=== PATIENT | female | born 1955 | race African-American/Black ===

== ENCOUNTER 2022-04-06 12:35 | Inpatient (IN) ==
[2022-04-06] MEDS ORDERED: LACTATED RINGERS 500 ML IV ONE (13:21)
[2022-04-06 13:34] LABS: Basophils % 0.2 % (0.0-0.8); Hematocrit 35.7 VOL% (35.7-47.0); Hemoglobin 11.9 GM/DL (12.0-16.0); Immature Granulocytes % 0.7 %; Immature Granulocytes Absolute 0.12 #; Lymphocytes # 1.3 10*3/uL (1.4-4.0); Lymphocytes % 7.6 % (21.3-54.2); Mean Corpuscular HGB Conc 33.3 GM/DL (32-36); Mean Corpuscular Volume 87.1 FL (87-102); Mean Platelet Volume 10.1 FL (9.6-12.0); Monocytes # 0.6 10*3/uL (0.11-0.8); Monocytes % 3.5 % (1.7-12.7); Platelet Count 269 T/CUMM (130-400); Red Cell Distribution Width 14.5 % (9.3-17.3); White Blood Count 17.6 T/CUMM (4-12)
[2022-04-06 14:09] LABS: Bilirubin,Total 0.6 MG/DL (0.20-1.00); Calcium 9.1 MG/DL (8.5-10.1); Osmolality,Calculated 287.3 MOS/KG (273-304); Phosphorous 4.2 MG/DL (2.5-4.9); Potassium 3.7 MMOL/L (3.5-5.1); Total Protein 8.3 G/DL (6.4-8.2)
[2022-04-06 15:06] LABS: Amorphous Crystals,Urine Occasional /HPF (Few); Mucus,Urine Occasional /LPF (Occasional); RBC,Urine 7 /HPF (0-4); Squamous Epithelial Cell,Urine Occasional /HPF (0-10); Urine Appearance Slightly Cloudy (Clear); Urine Color Yellow (Yellow); Urine pH 5.5 (4.5-8.0)
[2022-04-06 15:08] LABS: Blood, Urine Moderate mg/dL (Negative); Urine Urobilinogen 0.2 eU/dL (<2.0)
[2022-04-06 15:09] LABS: Bilirubin,Urine Small mg/dL (Negative); Glucose,Urine (UA) Negative (Negative); Nitrite,Urine Negative (Negative); Protein,Urine 100 mg/dL (Negative); Urine Specific Gravity >= 1.030 (1.001-1.035)
[2022-04-06 15:10] LABS: Ketones,Urine 15 mg/dL (Negative)
[2022-04-06] MEDS ORDERED: ONDANSETRON 4 MG/2 ML VIAL IV PRN (16:23)
[2022-04-06] MEDS ORDERED: ACETAMINOPHEN 325 MG TABLET PO PRN (16:23)
[2022-04-06] MEDS ORDERED: DOCUSATE SODIUM 100 MG CAPSULE PO PRN (16:23)
[2022-04-06] MEDS: LEVOFLOXACIN INJ 500 MG/100 ML PREMIX IV SCH (20:37)
[2022-04-06] MEDS: DEXTROSE 5% NACL 0.45% 1,000 ML IV SCH (20:38)
[2022-04-06] MEDS: ENOXAPARIN 40 MG/0.4 ML SYRINGE SUBCUT SCH (20:41)
[2022-04-06] MEDS: MEMANTINE 5 MG TABLET PO SCH (20:42)
[2022-04-06] MEDS: DONEPEZIL 10 MG TABLET PO SCH (20:42)
[2022-04-07 05:49] LABS: Basophils % 0.2 % (0.0-0.8); Eosinophils # 0.1 10*3/uL (0.0-0.87); Eosinophils % 0.8 % (0.00-10.9); Hematocrit 31.9 VOL% (35.7-47.0); Hemoglobin 10.4 GM/DL (12.0-16.0); Immature Granulocytes % 0.3 %; Immature Granulocytes Absolute 0.03 #; Lymphocytes # 2.1 10*3/uL (1.4-4.0); Lymphocytes % 18.7 % (21.3-54.2); Mean Corpuscular HGB Conc 32.6 GM/DL (32-36); Mean Corpuscular Volume 87.2 FL (87-102); Mean Platelet Volume 11.2 FL (9.6-12.0); Monocytes # 0.8 10*3/uL (0.11-0.8); Monocytes % 6.8 % (1.7-12.7); Neutrophils % 73.2 % (38.7-73.9); Platelet Count 238 T/CUMM (130-400); Red Blood Count 3.66 MC/CUMM (3.8-5.5); Red Cell Distribution Width 14.4 % (9.3-17.3); White Blood Count 11.3 T/CUMM (4-12)
[2022-04-07 05:56] LABS: Calcium 9.3 MG/DL (8.5-10.1); Osmolality,Calculated 284.3 MOS/KG (273-304); Potassium 3.6 MMOL/L (3.5-5.1)
[2022-04-07] MEDS: MEMANTINE 5 MG TABLET PO SCH ×2 (11:39→21:39)
[2022-04-07] MEDS: LETROZOLE 2.5 MG TABLET PO SCH (11:39)
[2022-04-07] MEDS: ASPIRIN EC 81 MG TABLET PO SCH (11:39)
[2022-04-07] MEDS: DEXTROSE 5% NACL 0.45% 1,000 ML IV SCH (17:22)
[2022-04-07] MEDS: LEVOFLOXACIN INJ 500 MG/100 ML PREMIX IV SCH (21:38)
[2022-04-07] MEDS: DONEPEZIL 10 MG TABLET PO SCH (21:39)
[2022-04-07] MEDS: ENOXAPARIN 40 MG/0.4 ML SYRINGE SUBCUT SCH (21:39)
[2022-04-08 06:15] LABS: Basophils % 0.2 % (0.0-0.8); Eosinophils # 0.1 10*3/uL (0.0-0.87); Eosinophils % 0.6 % (0.00-10.9); Hematocrit 28.7 VOL% (35.7-47.0); Hemoglobin 9.1 GM/DL (12.0-16.0); Immature Granulocytes % 0.4 %; Immature Granulocytes Absolute 0.04 #; Lymphocytes # 1.9 10*3/uL (1.4-4.0); Lymphocytes % 20.3 % (21.3-54.2); Mean Corpuscular HGB Conc 31.7 GM/DL (32-36); Mean Corpuscular Volume 89.4 FL (87-102); Mean Platelet Volume 10.9 FL (9.6-12.0); Monocytes # 0.8 10*3/uL (0.11-0.8); Monocytes % 8.4 % (1.7-12.7); Neutrophils % 70.1 % (38.7-73.9); Platelet Count 225 T/CUMM (130-400); Red Blood Count 3.21 MC/CUMM (3.8-5.5); Red Cell Distribution Width 14.4 % (9.3-17.3); White Blood Count 9.2 T/CUMM (4-12)
[2022-04-08 06:35] LABS: Calcium 8.8 MG/DL (8.5-10.1); Osmolality,Calculated 281.3 MOS/KG (273-304); Potassium 3.6 MMOL/L (3.5-5.1)
[2022-04-08] MEDS: ASPIRIN EC 81 MG TABLET PO SCH (10:59)
[2022-04-08] MEDS: LETROZOLE 2.5 MG TABLET PO SCH (10:59)
[2022-04-08] MEDS: MEMANTINE 5 MG TABLET PO SCH ×2 (10:59→21:09)
[2022-04-08] MEDS: DEXTROSE 5% NACL 0.45% 1,000 ML IV SCH (18:42)
[2022-04-08] MEDS: LEVOFLOXACIN INJ 500 MG/100 ML PREMIX IV SCH (21:08)
[2022-04-08] MEDS: ENOXAPARIN 40 MG/0.4 ML SYRINGE SUBCUT SCH (21:08)
[2022-04-08] MEDS: DONEPEZIL 10 MG TABLET PO SCH (21:08)
[2022-04-08] MEDS: SACUBITRIL/VALSARTAN 49-51 MG TABLET PO SCH (21:08)
[2022-04-09 05:33] LABS: Basophils % 0.3 % (0.0-0.8); Eosinophils # 0.1 10*3/uL (0.0-0.87); Eosinophils % 1.1 % (0.00-10.9); Hematocrit 30.2 VOL% (35.7-47.0); Immature Granulocytes % 0.3 %; Immature Granulocytes Absolute 0.02 #; Lymphocytes # 1.6 10*3/uL (1.4-4.0); Lymphocytes % 20.9 % (21.3-54.2); Mean Corpuscular HGB Conc 33.1 GM/DL (32-36); Mean Corpuscular Volume 87.5 FL (87-102); Mean Platelet Volume 10.2 FL (9.6-12.0); Monocytes # 0.6 10*3/uL (0.11-0.8); Monocytes % 7.9 % (1.7-12.7); Neutrophils % 69.5 % (38.7-73.9); Platelet Count 229 T/CUMM (130-400); Red Blood Count 3.45 MC/CUMM (3.8-5.5); Red Cell Distribution Width 14.2 % (9.3-17.3); White Blood Count 7.6 T/CUMM (4-12)
[2022-04-09 05:58] LABS: Calcium 9.2 MG/DL (8.5-10.1); Osmolality,Calculated 279.4 MOS/KG (273-304); Potassium 3.6 MMOL/L (3.5-5.1)
[2022-04-09] MEDS: MEMANTINE 5 MG TABLET PO SCH ×2 (09:23→20:24)
[2022-04-09] MEDS: ASPIRIN EC 81 MG TABLET PO SCH (09:23)
[2022-04-09] MEDS: SACUBITRIL/VALSARTAN 49-51 MG TABLET PO SCH ×2 (09:23→20:24)
[2022-04-09] MEDS: LETROZOLE 2.5 MG TABLET PO SCH (09:24)
[2022-04-09] MEDS: DONEPEZIL 10 MG TABLET PO SCH (20:24)
[2022-04-09] MEDS: LEVOFLOXACIN INJ 500 MG/100 ML PREMIX IV SCH (20:24)
[2022-04-09] MEDS: ENOXAPARIN 40 MG/0.4 ML SYRINGE SUBCUT SCH (20:24)
[2022-04-09] MEDS: DEXTROSE 5% NACL 0.45% 1,000 ML IV SCH (20:25)
[2022-04-10 05:54] LABS: Basophils % 0.4 % (0.0-0.8); Eosinophils # 0.1 10*3/uL (0.0-0.87); Eosinophils % 1.1 % (0.00-10.9); Hematocrit 30.7 VOL% (35.7-47.0); Immature Granulocytes % 0.2 %; Immature Granulocytes Absolute 0.02 #; Lymphocytes # 2.1 10*3/uL (1.4-4.0); Lymphocytes % 24.5 % (21.3-54.2); Mean Corpuscular HGB Conc 32.6 GM/DL (32-36); Mean Corpuscular Volume 88.5 FL (87-102); Mean Platelet Volume 10.9 FL (9.6-12.0); Monocytes # 0.7 10*3/uL (0.11-0.8); Monocytes % 8.6 % (1.7-12.7); Neutrophils % 65.2 % (38.7-73.9); Platelet Count 265 T/CUMM (130-400); Red Blood Count 3.47 MC/CUMM (3.8-5.5); Red Cell Distribution Width 14.3 % (9.3-17.3); White Blood Count 8.5 T/CUMM (4-12)
[2022-04-10 06:30] LABS: Calcium 9.3 MG/DL (8.5-10.1); Osmolality,Calculated 277.5 MOS/KG (273-304); Potassium 3.9 MMOL/L (3.5-5.1)
[2022-04-10] MEDS: LETROZOLE 2.5 MG TABLET PO SCH (08:49)
[2022-04-10] MEDS: DEXTROSE 5% NACL 0.45% 1,000 ML IV SCH (08:49)
[2022-04-10] MEDS: MEMANTINE 5 MG TABLET PO SCH (08:49)
[2022-04-10] MEDS: SACUBITRIL/VALSARTAN 49-51 MG TABLET PO SCH (08:50)
[2022-04-10] MEDS: ASPIRIN EC 81 MG TABLET PO SCH (08:50)
[2022-04-10] MEDS ORDERED: TUBERCULIN SKIN TEST 0.1 ML SYRINGE INTRADERM ONE (11:00)
[2022-04-10 12:35] VITALS: BP 100/63
== END 2022-04-10 15:33 | disposition home health service (06) | DRG 558 ==
LOC: N.ED 12:35 → N.EDINP 16:15 → SUATTDRO 16:15 → N.2E 17:14
PROVIDERS: ADMIT Hospitalist; ATTEND Hospitalist